=== PATIENT | female | born 2000 | race Caucasian/White ===

== ENCOUNTER 2022-08-26 12:55 | Outpatient (CLI) | payer OTHER, SELFPAY ==
[2022-08-26 12:44] LABS: Chloride* 101 mmol/L (96-114)
[2022-08-26 12:45] LABS: Potassium* 4.4 mmol/L (3.6-5.1); Sodium* 139 mmol/L (135-149)
[2022-08-26 12:47] LABS: Aspartate Amino Transferase* 17 U/L (12-35); Bilirubin Total* 0.8 mg/dL (0.1-1.5); Carbon Dioxide* 28 mmol/L (20-32); Creatinine* 0.6 mg/dL (0.5-1.5); Estimated Glomerular Filt Rate 130 ml/min; Total Protein* 7.3 g/dL (6.0-8.3)
[2022-08-26 12:48] LABS: Alanine Aminotransferase* 12 U/L (4-35); Alkaline Phosphatase* 49 U/L (40-150); Blood Urea Nitrogen* 10 mg/dL (5-24); Calcium* 9.7 mg/dL (8.4-10.6); Glucose* 94 mg/dL (60-115)
[2022-08-26 13:18] LABS: Vitamin D 25 Hydroxy* 30 ng/mL (30-80)
== END 2022-08-26 12:56 | disposition home or self-care (01) ==
PROVIDERS: PCP Physician Assistant Medical; Visit Provider Nurse Practitioner Family
DX: Z79.899 Other long term (current) drug therapy (principal)
CPT/HCPCS: 80053; 82306; 84443

== ENCOUNTER 2022-09-15 09:20 | Outpatient (CLI) | payer OTHER, SELFPAY ==
[2022-09-16 16:30] LABS: Hepatitis A Antibodies, Total Positive (Negative)
== END 2022-09-15 09:21 | disposition home or self-care (01) ==
LOC: LKVREF 09:21
PROVIDERS: PCP Physician Assistant Medical; Visit Provider Physician Assistant Medical
DX: N94.9 Unspecified condition associated with female genital organs and menstrual cycle (principal); B15.9 Hepatitis A without hepatic coma
CPT/HCPCS: 86708

== ENCOUNTER 2024-08-14 12:43 | Outpatient (CLI) | payer OTHER, SELFPAY | END 2024-08-14 12:44 | disposition home or self-care (01) | LOC: NFLDREF 08-15 08:28 | PROVIDERS: PCP Physician Assistant Medical; Referring Provider Physician Assistant Medical; Visit Provider Physician Assistant Medical | DX: R82.90 Unspecified abnormal findings in urine (principal); F41.9 Anxiety disorder, unspecified; F32.A Depression, unspecified; F90.9 Attention-deficit hyperactivity disorder, unspecified type | CPT/HCPCS: 87086 ==